=== PATIENT | female | born 1955 | race Caucasian/White ===

== ENCOUNTER 2025-03-16 10:10 | Inpatient (IN) ==
--- NOTE | 2025-03-16 10:40 | Emergency Department Note ---
History of Present Illness General Chief complaint: Fall Stated complaint: FALL, LEG PAIN Time Seen by Provider: 03/16/25 10:17 History of Present Illness Maximum Pain Intensity: 2 This 70-year-old female presents today via ALS ambulance, for evaluation of her left knee. The patient was at home this morning trimming an apple tree. She was on a small stepladder. She fell off, landing on her left knee. There was immediate onset of pain. She was unable to ambulate. EMS was notified. She was given morphine en-route which decreased her discomfort. She denies any prior history of significant left knee injury. No numbness or tingling. She has been unable to move the knee secondary to pain. She denies striking her head. She currently denies any chest pain, shortness of breath, vomiting, or abdominal pain. She is currently nauseated. Her accompanies her today. Home Medications Medication Instructions Recorded Confirmed Type calcium carbonate (Calcium 600) 600 mg PO DAILY 10/29/18 03/16/25 History multivitamin 1 tab PO DAILY 10/29/18 03/16/25 History Allergies Allergy/AdvReac Type Severity Reaction Status Date / Time No Known Allergies Allergy Verified 10/29/18 23:04 Past Med/Surg History Problem List (Updated 03/16/25 @ 17:00 by Schuyler Karimi PA-C) Head trauma Elevated C-reactive protein (CRP) Thrombocytopenia Closed fracture of lateral portion of left tibial plateau (Acute) Medical History No chronic diseases present Surgical History No significant past surgical history Family History Other No pertinent family history Social History (Updated 03/16/25 @ 16:43 by Schuyler Karimi PA-C) Smoking Status: Never smoker Preferred Language: Welsh marital status: Current Living Situation: Spouse Feels Safe at Home: Yes Review of Systems A total of 10 systems reviewed and were otherwise negative Physical Exam Vital Signs Vital Signs - 24 hr 03/16/25 10:18 03/16/25 11:20 03/16/25 11:45 Temperature 36.6 C Temperature Source Oral Pulse Rate 78 Pulse Rate [Finger] 72 Respiratory Rate 15 18 Blood Pressure 135/74 Blood Pressure [Right Arm] 121/72 Blood Pressure Mean 94 Blood Pressure Mean [Right Arm] 88 Pulse Oximetry 93 87 L 95 Oxygen Delivery Method Room Air Room Air Nasal Cannula Nasal Cannula Oxygen Flow Rate 0 2 Sepsis Recent Fever Within 48 Hours No Sepsis New/Unexplained Change in Mental Status N/A Sepsis Action Taken by Nursing No Action Required Oxygen Flow Rate - Titration 2 Pulse Oximetry Post Tiitration 93 03/16/25 14:00 03/16/25 16:05 03/16/25 17:04 Temperature Temperature Source Pulse Rate Pulse Rate [Finger] 69 76 76 Respiratory Rate 16 18 14 Blood Pressure Blood Pressure [Right Arm] 123/74 137/85 129/69 Blood Pressure Mean Blood Pressure Mean [Right Arm] 90 102 89 Pulse Oximetry 98 99 94 Oxygen Delivery Method Room Air Oxygen Flow Rate Sepsis Recent Fever Within 48 Hours Sepsis New/Unexplained Change in Mental Status Sepsis Action Taken by Nursing Oxygen Flow Rate - Titration Pulse Oximetry Post Tiitration General: Well-developed, well-nourished, elderly white female, in no acute distress. Laying on the bed. Obvious discomfort. Alert and oriented. Skin: Warm dry with good turgor. No rashes. No ecchymosis or erythema. She has multiple abrasions present on her upper extremities. She also has a large effusion in the left knee. HEENT: Normocephalic, atraumatic. Eyes PERRLA, EOMI. Nares patent bilaterally without nasal drainage. Oropharynx with moist oral mucosa. Fair dentition. Heart: Heart RRR. No MGR. Peripheral pulses are 2+. Lungs: Lungs are clear to auscultation. No crackles rhonchi or wheezing. Good air movement. The patient is able to take a deep breath. Abdomen: Abdomen was inspected, auscultated, and palpated. Bowel sounds present x 4. Soft, nontender to palpation. No hepato-splenomegaly. No masses noted. No rebound. No pain over McBurney's point. No CVA tenderness. Musculoskeletal: Gross motor function of the upper extremities is intact and unremarkable. She has full motion of the shoulders, elbows, and wrists without discomfort. She has full range of motion of the right hip, knee, and ankle. Left hip motion is limited secondary to her left knee pain. She has flexion of the left knee to approximately 45 degrees. She lacks approximately 10 degrees of terminal extension also secondary to pain. There is discomfort with palpation over the lateral tibia and lateral femoral condyle. No discomfort with palpation over her gastroc, tibialis anterior, ankle, or foot. Ankle function is intact and unremarkable. Stressing of the MCL and LCL causes lateral pain at her knee. There is no palpable defect in the patellar tendon or quadriceps tendon secondary to pain. She is able to perform a bent knee leg raise. Neurologic: Gross sensation is intact across the right and left legs by soft touch. Course Administered Medications Lactated Ringer's (Lr) 1,000 mls @ 110 mls/hr IV .[id number] [facility] Stop: 03/19/25 15:44 Last Admin: 03/16/25 16:01 Dose: 110 mls/hr Documented By: SARIKA Ondansetron HCl (Ondansetron Inj 2 Mg/Ml 2 Ml Vial) 4 mg IV Q4H PRN PRN Reason: Nausea Stop: 04/15/25 15:15 Last Admin: 03/16/25 17:04 Dose: 4 mg Documented By: JAMEL Discontinued Medications Ondansetron HCl (Ondansetron Inj 2 Mg/Ml 2 Ml Vial) 4 mg IV NOW STA Stop: 03/16/25 12:58 Last Admin: 03/16/25 13:12 Dose: 4 mg Documented By: ROSIO Medical Decision Making Differential Diagnosis Knee contusion, ligament tear, meniscal tear, tibial plateau fracture, femoral condylar fracture, osteoarthritis exacerbation, DVT Medical Records Attestation: I reviewed the patient's medical records. Home Medications Current Medication List: was personally reviewed by me Laboratory Data CBC obtained today shows a normal white count and normal H&H. Chemistry panel obtained today shows normal electrolytes. Normal BUN of 15 and creatinine mildly low at 0.58. Glucose 137. LFTs are unremarkable. 03/16/25 13:52 03/16/25 13:52 Lab Results 03/16/25 Range/Units 13:52 WBC 8.27 (4.8-10.8) K/ul RBC 4.39 (4.20-5.40) M/uL Hgb 12.9 (12.0-16.0) g/dl Hct 39.2 (37.0-47.0) % MCV 89.3 (80.0-100.0) fL MCH 29.4 (25.0-34.0) pg MCHC 32.9 (32.0-36.0) g/dL RDW Std Deviation 46.0 (36.4-46.3) fL RDW Coeff of Beka 13.9 (11.5-14.5) % Plt Count 115 L (130-400) K/uL MPV 11.8 (9.4-12.4) fL Immature Gran % (Auto) 0.4 % Neut % (Auto) 87.2 % Lymph % (Auto) 7.1 % [place] % (Auto) 5.0 % Eos % (Auto) 0.1 % Baso % (Auto) 0.2 % Neut # (Auto) 7.21 H (1.40-6.50) K/uL Lymph # (Auto) 0.59 L (1.20-3.40) K/uL [place] # (Auto) 0.41 (0.11-0.59) K/uL Eos # (Auto) 0.01 (0.00-0.50) K/uL Baso # (Auto) 0.02 (0.00-0.20) K/uL Immature Gran # (Auto) 0.03 (0.01-0.20) K/uL Sodium 140 (136-145) mmol/L Potassium 4.0 (3.5-5.1) mmol/L Chloride 104 (98-107) mmol/L Carbon Dioxide 30 (21-32) mmol/L Anion Gap 6 (3-11) BUN 15 (6-23) mg/dl Creatinine 0.58 L (0.6-1.2) mg/dl Est Cr Clr Drug Dosing 84.5 ml/min eGFR 97.29 BUN/Creatinine Ratio 25.9 H (10-20) Glucose 137 H (70-99(Fasting)) mg/dl Calcium 9.2 (8.6-10.3) mg/dl Total Bilirubin 0.4 (0.2-1.0) mg/dl Direct Bilirubin 0.1 (0-0.2) mg/dl AST 23 (13-39) U/L ALT 15 (7-52) U/L Alkaline Phosphatase 73 (34-104) U/L Total Protein 6.7 (6.0-8.3) gm/dl Albumin 3.9 (3.4-5.0) gm/dl Globulin 2.8 (2.5-4.0) gm/dl Albumin/Globulin Ratio 1.4 (0.9-2) Imaging Data My Impression: radiographic imaging obtained today of the left knee was interpreted by me and read by radiology. She has a visibly depressed Lateral tibial plateau fracture with comminution. CT scan and imaging of the left knee was performed in anticipation of surgical planning. This showed better resolution of the depressed tibial plateau fracture and the comminution. CT scan imaging of the head and cervical spine was also obtained. These were also interpreted by me and read by radiology. she has no acute intracranial findings. No midline shift. CT scan imaging of the cervical spine shows no acute traumatic findings. The patient does have an intraspinal calcification at the C2-C3 level suggestive of a calcified meningioma. MRI follow-up imaging was recommended. There is also focal disc narrowing at C5-C6. Radiologist's Impression: Knee X-Ray 03/16/25 10:40 XR knee LT 3V CLINICAL HISTORY: Fall. COMPARISON: None FINDINGS: There is an acute comminuted moderately depressed lateral tibial plateau fracture. Fracture extends to the tibial spines and proximal metadiaphysis of the left tibia. There is an associated large left knee joint effusion with lipohemarthrosis. There is no proximal left fibular fracture. No patellar or distal left femoral fracture is identified. There are mild degenerative changes within the left knee. IMPRESSION: 1. Acute comminuted moderately depressed lateral tibial plateau fracture. 2. Associated large left knee joint effusion with lipohemarthrosis. ACT 112: Negative or not required by law. Electronically signed by: Darvin Fischer M.D. 03/16/2025 11:[address] 03/16/25 11:48 CT knee LT wo con CLINICAL HISTORY: OR planning COMPARISON STUDY: Left knee radiographs performed earlier today. TECHNIQUE: Axial images of the left knee were obtained without IV contrast. Sagittal and coronal reformats were viewed. A dose lowering technique was utilized adhering to the principles of ALARA. FINDINGS: There is an acute comminuted lateral tibial plateau fracture which is significantly depressed. There is depression of approximately 7 mm. The fracture involves the entirety of the lateral tibial plateau and extends to the tibial spines. No extension into the medial tibial plateau is present. There is a large associated left knee joint effusion with lipohemarthrosis. No distal left femoral or proximal left fibular fractures present. There is no patellar fracture. There are mild degenerative changes within the left knee. IMPRESSION: 1. Acute comminuted lateral tibial plateau with significant depression of 7 mm. 2. Associated large left knee joint effusion with lipohemarthrosis. ACT 112: Negative or not required by law. Electronically signed by: Darvin Fischer M.D. 03/16/2025 12:[address] 03/16/25 14:22 Clinical History: Injury. Technique: Axial computed tomography images were obtained of the brain from the vertex to the skull base without intravenous contrast. Findings: There is no sign of intracranial hemorrhage. There is normal garcia-white matter differentiation with no sign of acute or old infarction. No midline shift or other form of herniation is identified. There is no hydrocephalus. No obvious mass lesion is seen on this noncontrast examination. The visualized portions of the orbits and paranasal sinuses appear unremarkable. The mastoid air cells appear clear Impression: Unremarkable noncontrast CT of the brain Electronically signed by Sea Todd 03-16-2025 3:[address] 03/16/25 14:23 EXAM: CT cervical spine without contrast PROVIDED HISTORY: Patient fell from step ladder. Nausea and vomiting.. COMPARISON: None TECHNIQUE: Helical CT imaging of the cervical spine was acquired without the use of IV contrast. Images are presented in axial, sagittal, and coronal reformats. FINDINGS: Alignment is anatomic. No significant listhesis. Vertebral body heights are maintained without compression deformity. No evidence of acute vertebral fracture identified. There is abnormal narrowing of the C5-6 intervertebral disks with endplate sclerosis and spurring. Mild degenerative facet arthropathy of the mid and lower cervical facet joints are present. There is some reversal of cervical lordosis. There is an intraspinal calcific lesion measuring approximately 1.2 x 0.6 x 0.6 cm in the right aspect of the spinal canal at the C2-3 level. This appears most likely extramedullary and may relate to the meninges such as a calcified meningioma or other lesion. Further evaluation with MRI study and neurologic/neurosurgical follow-up is indicated for this patient. IMPRESSION: 1. Negative for acute bony trauma. 2. Mild degenerative spondylolysis with focal disc narrowing at C5-6. 3. Calcified intraspinal mass at C2-3 to the right of the midline which may relate to the meninges such as calcified meningioma or other lesion. Further evaluation with MRI study of the cervical spine and neurologic/neurosurgical follow-up is recommended for this patient. 4. The was informed verbally of these findings at 17Hrs. Electronically signed by Feliz Montenegro 03-16-2025 5:15 PM ECG Data Additional Comments: EKG obtained this morning shows a normal sinus rhythm with a rate of 66. No acute ST or T wave changes are noted. This was reviewed with Dr. Estrada. Prescription Drug Monitoring [place] Drug Monitoring Program reviewed and no issues identified Blood Pressure Blood Pressure Findings: Normal blood pressure MDM Narrative The patient was evaluated in room B10. Conservative care measures were discussed. IV was established. Labs were obtained. Radiographic imaging obtained of the knee suggested a tibial plateau fracture with depression. Additional imaging using CT of the knee was obtained in anticipation of surgical planning. The patient began vomiting while in the department. She was given Zofran 4 mg IV which temporarily improved her symptoms, and then she began vomiting again. She was mildly diaphoretic as well. The patient was offered further Zofran but she declined. She was sent for CT scan imaging of her head and neck which was unremarkable for acute changes. She refused additional pain medication. Consultation was obtained from orthopedics. Dr. Agee recommended fixation of the tibia tomorrow, given that the patient ate at approximately 7:30 AM. The hospitalist team (Dr. Gaming) was consulted for medical admission with surgical consultation. The patient is aware and is agreeable. Please see that dictation for final management. She remained stable while in the ED. Impression & Plan Closed fracture of lateral portion of left tibial plateau hospitalist service was consulted for admission. Orthopedic service was consulted and recommended surgical intervention tomorrow given her Lack of n.p.o. status. follow-up MRI of the cervical spine will be ordered by the hospitalist team. Discharge Plan Visit Data Chief Complaint: Fall Stated Complaint: FALL, LEG PAIN ED Provider: Bruce Estrada ED Midlevel Provider: Schuyler Karimi Discharge Problem: Closed fracture of lateral portion of left tibial plateau Patient Disposition: Admitted As Inpatient Condition: Fair Forms Stand Alone Forms: Powered Prescriptions Prescriptions: No Action multivitamin Tablet 1 tab PO DAILY calcium carbonate [Calcium 600] 600 mg calcium (1,500 mg) Tablet 600 mg PO DAILY Referrals Referrals: Joshua Garcia [Primary Care Provider] - ED DC CONDITION Conditon at Discharge Condition at Discharge: Fair Discharge Problem: Closed fracture of lateral portion of left tibial plateau Qualifiers: Encounter type: initial encounter Qualified Code(s): S82.122A - Displaced fracture of lateral condyle of left tibia, initial encounter for closed fracture
--- NOTE | 2025-03-16 11:27 | XRay Report ---
XR knee LT 3V CLINICAL HISTORY: Fall. COMPARISON: None FINDINGS: There is an acute comminuted moderately depressed lateral tibial plateau fracture. Fractur e extends to the tibial spines and proximal metadiaphysis of the left tibia. There is an associated l arge left knee joint effusion with lipohemarthrosis. There is no proximal left fibular fracture. No p atellar or distal left femoral fracture is identified. There are mild degenerative changes within the left knee. IMPRESSION: 1. Acute comminuted moderately depressed lateral tibial plateau fracture. 2. Associated large left knee joint effusion with lipohemarthrosis. ACT 112: Negative or not required by law. Electronically signed by: Darvin Fischer M.D. 03/16/2025 11:26 AM
--- NOTE | 2025-03-16 12:52 | CT Scan Report ---
CT knee LT wo con CLINICAL HISTORY: OR planning COMPARISON STUDY: Left knee radiographs performed earlier today. TECHNIQUE: Axial images of the left knee were obtained without IV contrast. Sagittal and coronal refo rmats were viewed. A dose lowering technique was utilized adhering to the principles of ALARA. FINDINGS: There is an acute comminuted lateral tibial plateau fracture which is significantly depress ed. There is depression of approximately 7 mm. The fracture involves the entirety of the lateral tibi al plateau and extends to the tibial spines. No extension into the medial tibial plateau is present. There is a large associated left knee joint effusion with lipohemarthrosis. No distal left femoral or proximal left fibular fractures present. There is no patellar fracture. There are mild degenerative changes within the left knee. IMPRESSION: 1. Acute comminuted lateral tibial plateau with significant depression of 7 mm. 2. Associated large left knee joint effusion with lipohemarthrosis. ACT 112: Negative or not required by law. Electronically signed by: Darvin Fischer M.D. 03/16/2025 12:50 PM
[2025-03-16] MEDS: ONDANSETRON INJ 2 MG/ML 2 ML VIAL IV STA (13:12)
--- NOTE | 2025-03-16 13:24 | History & Physical Report ---
Date of Service March 16, 2025 Assessment & Plan (1) Closed fracture of lateral portion of left tibial plateau: Plan: I reviewed the imaging findings with the patient and her . Surgery is indicated to reduce and stabilize the fracture to give her the best possible long-term outcome for her knee. I had a long discussion with her about the risks and benefits of surgery, alternatives to surgery, and expected outcomes. After reviewing all these she elected to proceed with surgery. All questions were answered. Informed consent was signed. Surgical site was marked. Patient will be admitted to the internal medicine service. She will be kept nonweightbearing on the left lower extremity before surgery. After surgery we will plan on 6-8 weeks of nonweightbearing. She needs to be n.p.o. after midnight tonight for surgery tomorrow. (2) Thrombocytopenia: (3) Head trauma: Plan Marcy is a 69yo F with no significant medical history, here for fall 03/16/25 AM when trimming her apple tree on a 3-step ladder, resulting in L knee trauma found to be a L tibial plateau fracture confirmed by L knee xr and CT scan. Being admitted for ORIF and L arthroscopy with Dr. Agee tomorrow morning 02/16/25. Requires admission for upcoming ortho procedure, thereafter to be non weight-bearing on LLE for 6-8wks, PT/OT to start while inpatient. #Lateral Tibial Plateau fracture, Left closed, however with 7mm depression, prompting ORIF Scheduled for tomorrow 03/17/[address] Agee, appreciate recs Pain control: given morphine in EMS, pain controlled well but having nausea - Morphine 2mg vs 4mg for moderate vs severe pain, respectively - Option of toradol 15mg vs 30mg for same in lieu of morphine to avoid nausea/vomiting - Zofran prn for associated nausea/vomiting Vital signs stable, though BMP indicating mild dehydration based on BUN:Cr - ordered LR mIFV while PO is minimal Diet: ordered regular diet for now however no appetite due to nausea from morphine - NPO from midnight in anticipation of AM procedure PT/OT ordered to start tomorrow 03/17 after procedure - NON-weightbearing on LLE 6-8wks #Head trauma recalls hitting back of head on grass during fall, though not very hard - no significant pain, no loss of consciousness, dizziness, blurry vision, or focal deficits CT head w/o con and CT neck ordered, both appear unremarkable for acute intracranial or neck/c-spine pathology Pending radiologist read #Thrombocytopenia isolated aside from mildly nphilic predominance - mildly decreased at 115, down from prior in 2019 at 134 - asymptomatic, Hgb WNL, no signs of active bleeding - trend with CBC in AM Code: full FEN/GI: reg; NPO from midnight (00:00 on 03/17/25) VTE ppx: just SCD on RLE, surgery in AM 03/17/25 Dispo: med/surg History of Present Illness Primary Care Provider: Santypratimacharlie Vidal is a 69yo F with no significant medical history, here for fall this morning when trimming her apple tree resulting in L knee trauma found to be a L tibial plateau fracture seen on knee xr and CT scan. Being admitted for ORIF and L arthroscopy with Dr. Agee tomorrow morning 02/16/25. HPI: Denies any recent illness, weakness, falls, dizziness, alcohol or other substance use, or decreased appetite. Endorses she was doing yardwork all morning in her backyard. Notes she was on a 3-step ladder reaching to cut a long branch from her apple tree, when she lost balance and ended up falling, getting her L leg stuck in the ladder, and hitting her L knee on the ground. Notes the ground was grassy and not very hard, but immediately had severe pain in L knee. She denies recalling exactly the direction she fell, but does recall hitting the back of her head on the ground, denies any headache, dizziness, blurry vision, or loss of consciousness. States her was in the house when she fell, so despite her yelling, he did not come out right away. She was eventually able to get the attention of a neighbor, who then got the attention of pt's . They called 911 to be taken to the hospital. She was given morphine in EMS, unsure of dosage. ER course: given Zofran 4mg for nausea Living situation: lives with , son, and 2 grandkids. Doesn't use a walker or cane, no supplemental O2. No home health services. Allergies Allergy/AdvReac Type Severity Reaction Status Date / Time No Known Allergies Allergy Verified 10/29/18 23:04 Home Medications Medication Instructions Recorded Confirmed Type calcium carbonate (Calcium 600) 600 mg PO DAILY 10/29/18 03/16/25 History multivitamin 1 tab PO DAILY 10/29/18 03/16/25 History Past Med/Surg History Problem List (Updated 03/16/25 @ 17:00 by Schuyler Karimi PA-C) Head trauma Elevated C-reactive protein (CRP) Thrombocytopenia Closed fracture of lateral portion of left tibial plateau (Acute) Medical History No chronic diseases present Surgical History No significant past surgical history Family History Other No pertinent family history Social History (Updated 03/16/25 @ 16:43 by Schuyler Karimi PA-C) Smoking Status: Never smoker Preferred Language: Gabonese marital status: Current Living Situation: Spouse Feels Safe at Home: Yes Physical Exam Physical Exam: Gen: A&Ox3, no acute distress, appearing slightly tired HEENT: NC/AT, EOM intact, anicteric sclerae; slightly dry mucus membranes CV: RRR, +s1/s2, no m/r/g Resp: clear to auscultation b/l, no respiratory distress, good equal air entry b/l, no w/r/R GI/Abd: +BS, abdomen soft, non-distended, nontender to palpation MSK: LLE- L knee with moderate soft tissue swelling, no significant erythema or gross deformity but tenderness to palpation of inferolateral aspect of L knee joint, did not attempt ROM or strength testing due to pain; RLE unremarkable; b/l UE unremarkable Neuro: no facial droop, speech intact Psych: mood-affect congruence, good eye contact Results & Data Results & Data Vital Signs (Past 12 Hours) Vital Signs Temp Pulse Pulse Resp BP BP Pulse Ox 03/16/25 11:45 72 18 121/72 95 03/16/25 11:20 87 L 03/16/25 10:18 36.6 C 78 15 135/74 93 O2 Del Method O2 Flow Rate 03/16/25 11:45 Nasal Cannula 2 03/16/25 11:20 Room Air, Nasal Cannula 0 03/16/25 10:18 Room Air Supervising Physician Co-Signing Physician Notes I personally examined the patient and verified all jacobson points of history and exam, discussed case, and agree with decision making with Dr Schuler mechanical fall when trimming a tree, almost immediate knee pain. Vitals noted, in general she is laying in bed appears to be in no distress. HEENT normocephalic atraumatic mucous membranes moist. Breathing unlabored no accessory muscle use good effort. Labs and diagnostics noted. Case discussed with orthopedics, input appreciated. Tibial plateau fracturefor surgery tomorrow. Pain control, supportive care. Intractable vomitinghead CT negative for any bleeding or mass effect, troponin negative, suspect was either due to pain or side effect of pain m edication. Follow, supportive care. Incidentally noted calcified mass on C-spinewe will want MRI as recommended by radiology, but this appears nonemergent, MRI either later in hospital stay (right now would be quite uncomfortable due to fx) or in short-order as outpt Resident Activity Tracking Resident Involvement: Resident Care Provided Care Provided: Adult Hospital Medicine (3) Head trauma Encounter type: initial encounter Qualified Code(s): S09.90XA - Unspecified injury of head, initial encounter
[2025-03-16 14:12] LABS: Hematocrit (blood only) 39.2 % (37.0-47.0); Hemoglobin 12.9 g/dl (12.0-16.0); Immature Granulocytes # (auto) 0.03 K/uL (0.01-0.20); Immature Granulocytes % (auto) 0.4 %; Mean Corpuscular Hemoglobin 29.4 pg (25.0-34.0); Mean Corpuscular Volume 89.3 fL (80.0-100.0); Platelet Count 115 K/uL (130-400); RDW Standard Deviation 46.0 fL (36.4-46.3); Red Blood Count 4.39 M/uL (4.20-5.40); White Blood Count 8.27 K/ul (4.8-10.8)
[2025-03-16] MEDS ORDERED: KETOROLAC TROMETHAMINE 15 MG/ML VIAL IV PRN ×2 (14:22→15:14)
[2025-03-16] MEDS ORDERED: MoRPHine SULFATE 4 MG/ML 1 ML CARP\\VIAL IV PRN (14:24)
[2025-03-16] MEDS ORDERED: MoRPHine SULFATE 2 MG/ML CARP IV PRN (14:24)
[2025-03-16 14:29] LABS: Alanine Aminotransferase 15.0 U/L (7-52); Albumin Globulin Ratio 1.4 (0.9-2); Alkaline Phosphatase 73.0 U/L (34-104); Anion Gap 6.0 (3-11); Bilirubin,Total 0.4 mg/dl (0.2-1.0); Blood Urea Nitrogen 15.0 mg/dl (6-23); Calcium 9.2 mg/dl (8.6-10.3); Carbon Dioxide 30.0 mmol/L (21-32); Chloride 104.0 mmol/L (98-107); Creatinine Clr Calc Pharmacy 84.5 ml/min; Globulin 2.8 gm/dl (2.5-4.0); Glucose 137.0 mg/dl (70-99(Fasting)); Potassium 4.0 mmol/L (3.5-5.1); Sodium 140.0 mmol/L (136-145); Total Protein 6.7 gm/dl (6.0-8.3)
--- NOTE | 2025-03-16 14:49 | Orthopedic Consultation ---
Date of Consultation March 16, 2025 Assessment & Plan (1) Closed fracture of lateral portion of left tibial plateau: I reviewed the imaging findings with the patient and her . Surgery is indicated to reduce and stabilize the fracture to give her the best possible long-term outcome for her knee. I had a long discussion with her about the risks and benefits of surgery, alternatives to surgery, and expected outcomes. After reviewing all these she elected to proceed with surgery. All questions w ere answered. Informed consent was signed. Surgical site was marked. Patient will be admitted to the internal medicine service. She will be kept nonweightbearing on the left lower extremity before surgery. After surgery we will plan on 6-8 weeks of nonweightbearing. She needs to be n.p.o. after midnight tonight for surgery tomorrow. History of Present Illness Reason for Consultation: Left tibial plateau fracture History of Present Illness 69-year-old female, was working at home on a ladder this morning trimming a tree when she fell off the ladder from a height of about 2 to 3 feet landing on her left leg. She had immediate onset of severe pain in the left knee. Difficulty ambulating. She was brought to the emergency room where x-rays were obtained demonstrating a lateral tibial plateau fracture, Schatzker type II. CT scan was obtained. Orthopedics was consulted for evaluation and management. Patient was seen and examined the emergency room. She denies any previous problems with her knees. 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 Denies numbness or tingling down her leg. Denies tobacco, alcohol and illicits. Allergies Allergy/AdvReac Type Severity Reaction Status Date / Time No Known Allergies Allergy Verified 10/29/18 23:04 Home Medications Medication Instructions Recorded Confirmed Type calcium carbonate (Calcium 600) 600 mg PO DAILY 10/29/18 03/16/25 History multivitamin 1 tab PO DAILY 10/29/18 03/16/25 History Patient History Medical History No chronic diseases present Surgical History No significant past surgical history Family History (Updated 03/16/25 @ 10:39 by Schuyler Karimi PA-C) Other No pertinent family history Social History Smoking Status: Never smoker Preferred Language: Togolese Feels Safe at Home: Yes Physical Exam Physical Exam: On exam she is very pleasant female in no acute distress accompanied by her , alert and oriented x 3. Left lower extremity exam reveals the patient have a 3+ effusion. The skin is intact completely. She has a palpable pulse dorsalis pedis in her foot. She is sensory intact to light touch in the dorsal and plantar aspects of the foot. She wiggles her toes and fires tib ant and gastrocsoleus without difficulty. Knee range of motion was not tested secondary to pain. She had some mild swelling noted over the lateral tibial plateau where she was tender to palpation. No tenderness over the medial tibial plateau or over the distal femur. Mild tenderness over the synovium secondary to hemarthrosis. Results & Data Vital Signs (Past 12 Hours) Vital Signs Temp Pulse Pulse Resp BP BP Pulse Ox 03/16/25 14:00 69 16 123/74 98 03/16/25 11:45 72 18 121/72 95 03/16/25 11:20 87 L 03/16/25 10:18 36.6 C 78 15 135/74 93 O2 Del Method O2 Flow Rate 03/16/25 14:00 Room Air 03/16/25 11:45 Nasal Cannula 2 03/16/25 11:20 Room Air, Nasal Cannula 0 03/16/25 10:18 Room Air Diagnostic Findings I independently interpreted her x-rays and CT scan of the left knee. This shows the lateral tibial plateau fractured and depressed about 9 mm. There is a fracture line extending through the lateral cortex, consistent with a Schatzker type 2. Bone density suspicious for osteoporosis.
--- NOTE | 2025-03-16 15:50 | CT Scan Report ---
Clinical History: Injury. Technique: Axial computed tomography images were obtained of the brain from the vertex to the skull base without intravenous contrast. Findings: There is no sign of intracranial hemorrhage. There is normal garcia-white matter differentiation with no sign of acute or old infarction. No midline shift or other form of herniation is identified. There is no hydrocephalus. No obvious mass lesion is seen on this noncontrast examination. The visualized portions of the orbits and paranasal sinuses appear unremarkable. The mastoid air cells appear clear Impression: Unremarkable noncontrast CT of the brain Electronically signed by Sea Todd 03-16-2025 3:49 PM
[2025-03-16] MEDS: LACTATED RINGER'S 1,000 ML IV SCH (16:01)
[2025-03-16] MEDS: ONDANSETRON INJ 2 MG/ML 2 ML VIAL IV PRN (17:04)
--- NOTE | 2025-03-16 17:16 | CT Scan Report ---
EXAM: CT cervical spine without contrast PROVIDED HISTORY: Patient fell from step ladder. Nausea and vomiting.. COMPARISON: None TECHNIQUE: Helical CT imaging of the cervical spine was acquired without the use of IV contrast. Images are presented in axial, sagittal, and coronal reformats. FINDINGS: Alignment is anatomic. No significant listhesis. Vertebral body heights are maintained without compression deformity. No evidence of acute vertebral fracture identified. There is abnormal narrowing of the C5-6 intervertebral disks with endplate sclerosis and spurring. Mild degenerative facet arthropathy of the mid and lower cervical facet joints are present. There is some reversal of cervical lordosis. There is an intraspinal calcific lesion measuring approximately 1.2 x 0.6 x 0.6 cm in the right aspect of the spinal canal at the C2-3 level. This appears most likely extramedullary and may relate to the meninges such as a calcified meningioma or other lesion. Further evaluation with MRI study and neurologic/neurosurgical follow-up is indicated for this patient. IMPRESSION: 1. Negative for acute bony trauma. 2. Mild degenerative spondylolysis with focal disc narrowing at C5-6. 3. Calcified intraspinal mass at C2-3 to the right of the midline which may relate to the meninges such as calcified meningioma or other lesion. Further evaluation with MRI study of the cervical spine and neurologic/neurosurgical follow-up is recommended for this patient. 4. The was informed verbally of these findings at 17Hrs. Electronically signed by Feliz Montenegro 03-16-2025 5:15 PM
[2025-03-16] MEDS ORDERED: MELATONIN 3 MG TAB PO PRN (18:30)
[2025-03-16] MEDS ORDERED: ONDANSETRON INJ 2 MG/ML 2 ML VIAL IV PRN (18:30)
--- NOTE | 2025-03-16 18:36 | Billing Data ---
Date of Service March 16, 2025 Coding Level of Care Code 33737 INT INP/OBS CARE
[2025-03-17] MEDS: ACETAMINOPHEN 325 MG TAB PO PRN (01:03)
--- NOTE | 2025-03-17 07:09 | Hospitalist Progress Note ---
Date of Service March 17, 2025 Assessment & Plan (1) Closed fracture of lateral portion of left tibial plateau: (2) Osteoporosis: (3) Thrombocytopenia: (4) Head trauma: (5) Cervical spinal mass: Plan Marcy is a 69yo F with no significant medical history, here for fall 03/16/25 AM when trimming her apple tree on a 3-step ladder, resulting in L knee trauma found to be a L tibial plateau fracture confirmed by L knee xr and CT scan. Underwent ORIF and L arthroscopy with Dr. Agee 02/16/25 AM. Requires continued admission for VS and symptom monitoring s/p ortho procedure, thereafter to be non weight-bearing on LLE for 6-8wks, PT/OT to start while inpatient. #Lateral Tibial Plateau fracture, Left closed, however with 7mm depression, prompting ORIF 03/17/[address] Agee Procedure uncomplicated, LLE with brace and ice packs, supportive pillows PT/OT ordered, appreciate recs, 6-8wks of non-weightbearing LLE Pain control: - Morphine 2mg vs 4mg for moderate vs severe pain, respectively - Oxycodone 5-10mg prn for pain or prior to PT - Zofran prn for associated nausea/vomiting Vital signs stable, though BMP indicating mild dehydration based on BUN:Cr - continue mIVF, may discontinue based on good PO intake - BMP AM #Osteoporosis Noted on DEXA from 2022 with lowest z-score of -2.9, within osteoporotic range Treat with bisphosphonates once permitted to start weightbearing, 6-8wks from now (mid-April to early May) #Head trauma recalls hitting back of head on grass during fall, though not very hard - no significant pain, no loss of consciousness, dizziness, blurry vision, or focal deficits - CT head w/o contrast unremarkable for acute intracranial pathology #Cervical spinal mass, incidental CT head w/o con and CT neck showing C2-3 intraspinal mass R of midline, possible meningioma MRI c-spine w/ and w/o contrast ordered to better characterize mass #Thrombocytopenia isolated aside from mildly nphilic predominance - mildly decreased at 108, down from prior in 2019 at 134 - asymptomatic, Hgb 11.9, no signs of active bleeding H&H timed for 17:00 pending CBC AM Code: full FEN/GI: regular as tolerated VTE ppx: aspirin 81mg BID (per ortho) starting 7/7 AM Dispo: med/surg Admission and Anticipated Discharge Date Admission Date: March 16, 2025 Supervising Physician Co-Signing Physician Notes I personally examined the patient and verified all jacobson points of history and exam, discussed case, and agree with decision making with Dr Schuler seen postop. Doing well overall. Just wonders about leg positioningbut right now is iced and in an immobilizer. Discussed MRI C-spine and rationale. Vitals noted, in general she is laying in bed appears to be in no distress. HEENT normocephalic atraumatic mucous membranes moist. Breathing unlabored no accessory muscle use good effort. left leg in immobilizer, wrap, and ice pack. Labs and diagnostics noted. Case discussed with orthopedics, input appreciated. Tibial plateau fracture Postop and overall doing well. Pain control, PT/OT eval and treat. Intractable vomitinghead CT negative for any bleeding or mass effect, troponin negative, suspect was either due to pain or side effect of pain medicat ion. appears to have resolved Incidentally noted calcified mass on C-spinewe will want MRI as recommended by radiology, ordered, pending hopefully home tomorrow after PT outpatient osteoporosis management (although adding calcium, vitamin D now) Subjective Back from L ORIF procedure, feeling well but a bit tired, having no significant pain. Endorses the procedure went well, no concerns about bleeding or other complications. Lunch was in front of her but she had just been taking a nap, so hadn't gotten to eat yet but is willing. Denies significant pain, numbness/tingling, lightheadedness, or dizziness. Physical Exam Physical Exam: Gen: A&Ox3, no acute distress, appearing slightly tired HEENT: NC/AT, EOM intact, anicteric sclerae; slightly dry mucus membranes CV: RRR, +s1/s2, no m/r/g Resp: clear to auscultation b/l, no respiratory distress, good equal air entry b/l, no w/r/R GI/Abd: +BS, abdomen soft, non-distended, nontender to palpation MSK: LLE- in brace with ice packs on top, no obvious swelling or ecchymosis of visible skin, strength and ROM testing of LLE not done but able to move LLE and wiggle LE toes on command; RLE unremarkable; b/l UE unremarkable Neuro: no facial droop, speech intact, able to move all extremities on command Psych: mood-affect congruence, good eye contact Results & Data Results & Data Vital Signs (Past 12 Hours) Vital Signs Temp Pulse Resp BP Pulse Ox O2 Del Method 03/17/25 07:05 36.8 C 77 16 111/67 94 Room Air 03/16/25 22:50 36.6 C 80 18 111/63 03/16/25 20:00 36.6 C 80 18 111/63 95 Room Air Resident Activity Tracking Resident Involvement: Resident Care Provided Care Provided: Adult Hospital Medicine (1) Closed fracture of lateral portion of left tibial plateau Encounter type: initial encounter Qualified Code(s): S82.122A - Displaced fracture of lateral condyle of left tibia, initial encounter for closed fracture (2) Osteoporosis Encounter type: initial encounter Osteoporosis type: unspecified Presence of current pathological fracture: with current pathological fracture Qualified Code(s): M80.00XA - Age-related osteoporosis with current pathological fracture, unspecified site, initial encounter for fracture (4) Head trauma Encounter type: initial encounter Qualified Code(s): S09.90XA - Unspecified injury of head, initial encounter
[2025-03-17] MEDS ORDERED: MIDAZOLAM HCL 1 MG/ML 2ML VIAL ONE (07:14)
[2025-03-17] MEDS ORDERED: PROPOFOL IV EMULSION 10 MG/ML 20 ML VIAL IV ONE (07:14)
[2025-03-17] MEDS ORDERED: LIDOCAINE 2% 2 ML VIAL/AMP(20MG/ML) INFIL ONE (07:14)
[2025-03-17] MEDS ORDERED: ROCURONIUM BROMIDE 10 MG/ML 5 ML VIAL IV ONE (07:14)
[2025-03-17] MEDS ORDERED: DEXAMETHASONE SOD INJ 4 MG/ML VIAL ONE (07:14)
[2025-03-17] MEDS ORDERED: ONDANSETRON INJ 2 MG/ML 2 ML VIAL ONE (07:14)
[2025-03-17 07:30] LABS: Hematocrit (blood only) 35.3 % (37.0-47.0); Hemoglobin 11.9 g/dl (12.0-16.0); Mean Corpuscular Hemoglobin 29.9 pg (25.0-34.0); Mean Corpuscular Volume 88.7 fL (80.0-100.0); Platelet Count 108 K/uL (130-400); RDW Standard Deviation 45.0 fL (36.4-46.3); Red Blood Count 3.98 M/uL (4.20-5.40); White Blood Count 5.47 K/ul (4.8-10.8)
[2025-03-17] MEDS ORDERED: ceFAZolin 330 MG/ML 1 GM VIAL ONE (07:31)
[2025-03-17] MEDS ORDERED: SODIUM CHLORIDE 0.9% PF INJ 10 ML VIAL ONE ×2 (07:32)
[2025-03-17] MEDS ORDERED: HYDROmorphone INJ 1 MG/ML SYRINGE IV PRN (07:35)
[2025-03-17] MEDS ORDERED: ONDANSETRON INJ 2 MG/ML 2 ML VIAL IV PRN (07:35)
[2025-03-17] MEDS ORDERED: ATROPINE SULFATE 0.1 MG/ML 10ML SYR IV PRN (07:35)
--- NOTE | 2025-03-17 07:35 | Anesthesiology Consultation ---
Date of Service March 17, 2025 Assessment & Plan ASA ASA2 Proposed Anesthesia Anesthesia Type: General Risk / Benefits Reviewed With: PT / POA / Parent / Guardian, Accepts Plan and Informed Consent Obtained History Surgery Operation Date: 03/17/25 07:15 Proposed Procedures p ORIF Tibial Plateau Fracture(Left) - Fernando Agee MD s Arthroscopy Knee(Left) - Fernando Agee MD Height/Weight Height: 5 ft 6 in Weight: 70.5 kg Allergies Allergy/AdvReac Type Severity Reaction Status Date / Time No Known Allergies Allergy Verified 10/29/18 23:04 Medications Home Medications Medication Instructions Recorded Confirmed Last Taken calcium carbonate (Calcium 600) 600 mg PO DAILY 10/29/18 03/16/25 10/29/18 multivitamin 1 tab PO DAILY 10/29/18 03/16/25 10/29/18 Active Medications Generic Name Dose Route Start Last Admin Trade Name Freq PRN Reason Stop Dose Admin Acetaminophen 650 mg 03/16/25 18:30 03/17/25 01:03 Acetaminophen 325 Mg Tab PO 04/15/25 18:29 650 mg Q4H PRN Administration pain/fever Lactated Ringer's 1,000 mls @ 110 mls/hr 03/16/25 15:45 03/17/25 02:27 Lr IV 03/19/25 15:44 110 mls/hr .Q9H6M ALICJA Administration Ondansetron HCl 4 mg 03/16/25 15:16 03/16/25 17:04 Ondansetron Inj 2 Mg/Ml 2 Ml Vial IV 04/15/25 15:15 4 mg Q4H PRN Administration Nausea Past Medical History Medical History No chronic diseases present Exercise / Class Metabolic Activity II 4-5 Yardwork/Stairs/Walk up hill Past Family History Family History Other No pertinent family history Past Surgical History Surgical History No significant past surgical history Past Anesthesia History No Hx of Anesthesia Complications and No Family Hx of Anesthesia Complications History of PONV No Hx of PONV and No Hx of Motion Sickness Social History Smoking Status: Never smoker Do You Dip or Chew Tobacco: No Hx Alcohol Use: No Hx Substance Use: No Review of Systems denies fever/cough/ colds/ chest pain/ SOB/ MCKAYLA denies MCKAYLA Physical Exam Vital Signs Last Vital Signs Temp 36.8 C 03/17/25 07:05 Pulse 77 03/17/25 07:05 Resp 16 03/17/25 07:05 BP 111/67 03/17/25 07:05 Pulse Ox 94 03/17/25 07:05 O2 Del Method Room Air 03/17/25 07:05 O2 Flow Rate 2 03/16/25 11:45 ENMT Mouth: no TMJ abnormality and no dentition abnormality Thyromental Distance: > or= 3.5 Finger Breadths Mallampati Class: II Neck neck extension not limited Respiratory normal respiratory effort; no respiratory distress Auscultation: lungs clear to auscultation bilaterally Cardiovascular Rate/Rhythm: regular rate and regular rhythm Neurologic moves all extremities Psychiatric Orientation: alert and oriented x 3 Testing Laboratory Results 03/17/25 06:20
--- NOTE | 2025-03-17 07:44 | Orthopedic Progress Note ---
Date of Service March 17, 2025 Assessment & Plan (1) Closed fracture of lateral portion of left tibial plateau: Plan: Proceed to OR this morning for surgery. Re-admit to medicine after surgery. Admission and Anticipated Discharge Date Admission Date: March 16, 2025 Subjective Patient did well overnight. Has not had anything to eat since midnight last night. Physical Exam Physical Exam: On exam she is very pleasant female in no acute distress accompanied by her , alert and oriented x 3. Left lower extremity exam reveals the patient have a 3+ effusion. The skin is intact completely. She has a palpable pulse dorsalis pedis in her foot. She is sensory intact to light touch in the dorsal and plantar aspects of the foot. She wiggles her toes and fires tib ant and gastrocsoleus without difficulty. Knee range of motion was not tested secondary to pain. She had some mild swelling noted over the lateral tibial plateau where she was tender to palpation. No tenderness over the medial tibial plateau or over the distal femur. Mild tenderness over the synovium secondary to hemarthrosis. Results & Data Vital Signs (Past 12 Hours) Vital Signs Temp Pulse Resp BP Pulse Ox O2 Del Method 03/17/25 07:05 36.8 C 77 16 111/67 94 Room Air 03/16/25 22:50 36.6 C 80 18 111/63 03/16/25 20:00 36.6 C 80 18 111/63 95 Room Air (1) Closed fracture of lateral portion of left tibial plateau Encounter type: initial encounter Qualified Code(s): S82.122A - Displaced fracture of lateral condyle of left tibia, initial encounter for closed fracture
[2025-03-17] MEDS: TRANEXAMIC ACID / 0.7% NACL 1,000 MG/100 ML BAG IV ONE (07:48)
[2025-03-17 08:00] LABS: Anion Gap 5.0 (3-11); Blood Urea Nitrogen 12.0 mg/dl (6-23); Calcium 8.8 mg/dl (8.6-10.3); Carbon Dioxide 28.0 mmol/L (21-32); Chloride 105.0 mmol/L (98-107); Creatinine Clr Calc Pharmacy 84.5 ml/min; Glucose 99.0 mg/dl (70-99(Fasting)); Potassium 4.1 mmol/L (3.5-5.1); Sodium 138.0 mmol/L (136-145)
[2025-03-17] MEDS ORDERED: SUGAMMADEX SODIUM 200 MG/2 ML VIAL IV ONE (10:11)
--- NOTE | 2025-03-17 10:27 | Fluoroscopy Report ---
FL tibia/fibula LT 2V CLINICAL HISTORY: ORIF LT TIB FIB + SCOPE OF LT KNEE COMPARISON STUDY: Left knee radiographs and CT of the left knee March 16, 2025. Fluoroscopy time: 95.7 seconds. Number of fluoroscopic images: 3 Ka,r: 3.61 mGy. FINDINGS: Fluoroscopy was provided during open reduction and internal fixation of the lateral tibial plateau fracture with plate and screws. Fracture alignment appears anatomic. Hardware is intact. Ther e are no unexpected radiopaque foreign bodies. IMPRESSION: Fluoroscopy provided during open reduction and internal fixation of the lateral tibial p lateau fracture. ACT 112: Negative or not required by law. Electronically signed by: Darvin Fischer M.D. 03/17/2025 10:26 AM
[2025-03-17] MEDS: BUPIVACAINE/EPINEPHRINE 0.5% MPF 1:200,000 30 ML VIAL ONE (10:32)
[2025-03-17] MEDS: EpINEphrine HCL INJ 1 MG/ML 1ML SYRINGE IR ONE (10:32)
--- NOTE | 2025-03-17 10:38 | Operative Report ---
Post Operative Report Pre & Post Diagnosis Operation Date: 03/17/25 07:15 Pre-Op Diagnosis: Left Schatzker 2 Tibial Plateau Fracture Post-Op Diagnosis: Left Schatzker 2 Tibial Plateau Fracture I identified the patient and participated in the time-out.: Yes Procedure Operation Date: 03/17/25 07:15 Actual Procedures 1. Left knee arthroscopy 2. Arthroscopic assisted open reduction internal fixation left tibial plateau fracture with allograft (Left) - Fernando Agee MD Surgeon Fernando Agee MD [employer] Coach Lee Yeager PA-C. No resident or fellow was available to assist Estimated Blood Loss 25 Findings Consistent with Post-Op Diagnosis Specimens None Anesthesia Type General Complications none Disposition Disposition: Recovery Room Indications 69-year-old female, fell off a ladder from a height of around 3 feet yesterday landing on her left leg. Immediate onset of knee pain. She presented to the emergency room where x-rays and a CT scan demonstrated a Schatzker 2 left tibial plateau fracture. Joint surface was depressed approximately 9 mm. I had a long discussion with her about her diagnosis and treatment options. Surgery is recommended to reduce and fixate the fracture. After reviewing all the risks and benefits of surgery, alternatives, and expected outcomes she elected to proceed with surgery. All questions were answered. Informed consent was signed. Description of Procedure Patient was identified in the preoperative holding area where her surgical site was marked. She was brought back to the operating room where she moved onto the operating room table and general anesthesia was administered. A bump was placed underneath the operative hip. All bony prominences were padded. Perioperative antibiotics and 1 g of IV tranexamic acid were administered. She was prepped and draped in the usual sterile fashion. Prior to incision a multidisciplinary time was called. All in the room in agreement. I began by performing a left knee arthroscopy. Lateral portal was created using a #11 blade. Arthroscope was inserted in the suprapatellar pouch. Large amount of hematoma was encountered in the joint. This was suctioned out. The ar throscope was then placed in the knee and we irrigated out the knee to remove the hematoma. An anterior medial portal was then created under direct visualization. A diagnostic arthroscopy was performed revealing the below findings: 1. Undersurface patella showed grade II chondromalacia. 2. The trochlea showed grade I chondromalacia. 3. The ACL was intact. 4. Medial compartment showed the medial meniscus medial tibial plateau and medial femoral condyle to be intact. 5. Lateral compartment showed the lateral meniscus to be intact. She had a depressed tibial plateau fracture with a large fragment located anterolaterally and a small fragment located posterior laterally. Next, the arthroscope was removed from the knee, and the limb was exsanguinated with an Esmarch bandage. The knee was placed over a bump. A hockey-stick shaped incision was made following the junction between the anterior compartment musculature and the tibia. I dissected down through subcutaneous tissues to the level of fascia. The anterior compartment was dissected off of the tibia subperiosteally. Next, the arthroscope was inserted into the anterior medial portal and the anterolateral portal was enlarged in order to facilitate placement of the ACL guide. This was centered over the large articular fragment. Angle was set at 75 degrees. 2.4 mm guidewire was then drilled underneath the fragment. Fluoroscopy was brought in and we checked the position of the wire which I was happy with. I then used an 8 mm reamer to open the cortex at the entry of the wire into the metaphysis of the tibia. A tamp was then placed up underneath the fragment. With a combination of arthroscopic assistance as well as fluoroscopy I then tamped the articular fragment up back into its normal anatomic position. The void created underneath the fragment from the tamp was backfilled with cancellous bone chips. Once I had an anatomic reduction, the tourniquet was let down and I then brought up the [employer] proxima l tibial locking plate for the left knee. This was placed in the appropriate position and then secured with K wires. A large periarticular reduction clamp was then brought up on the field. Small stab incision was made at the appropriate location in the proximal medial tibia. 1 ry of the clamp was placed down to the proximal medial tibia. Second ry was placed over the lateral aspect of the plate and was used to compress the fracture via the plate. Once this was complete I then placed a single 3.5 mm cortical screw in the oblong hole of the plate to compress the plate to the bone. I then filled the locking holes in the proximal aspect of the plate with 3.5 mm locking screws. These were drilled and measured and the screws were placed so as to not past the far cortex. Once all of her proximal locking screws were then placed I then placed the 2 kickstand locking screws more distally in the plate. Finally the another 3.5 Oliveros cortical screw was placed in the most distal hole of the plate in bicortical fashion. Excellent fixation was obtained. Fluoroscopy confirmed that we had an anatomic reduction of the fracture and the hardware was in appropriate position. Arthroscope was inserted back into the joint and this confirmed that we had an anatomic reduction of the large articular fragment. The small posterior articular fragment was still depressed about 1 mm which was acceptable. At this point the arthroscope was removed from the joint. Wounds were irrigated with copious amounts normal saline. The fascia was closed over the distal aspect of the plate using 0 Vicryl sutures. Skin was closed with 3-0 Vicryl sutures in buried fashion. Stapler was used for the skin. Xeroform, gauze, Kerlix, and an Kd wrap were applied. Patient was placed in a hinged knee brace with range of motion unlocked. She was then awoke from anesthesia and transferred to recovery room in stable condition. Postoperative course: Patient will be readmitted to the hospitalist service. She will be nonweightbearing for the next 6 weeks. Full knee range of motion immediately after surgery will be encouraged. She can discharge home tomorrow if she passes physical therapy. She should be on aspirin 81 mg twice a day for DVT prophylaxis. Follow-up in orthopedics clinic in 2 weeks with x-rays. I attest to the content of the Intraoperative Record and any orders documented therein. Any exceptions are noted below.
[2025-03-17] MEDS: MEPERIDINE HCL 25 MG/ML CARP/VIAL IV PRN (11:12)
--- NOTE | 2025-03-17 11:13 | Operative Report ---
Post Operative Report Pre & Post Diagnosis Pre-Op Diagnosis: Left Schatzker 2 Tibial Plateau Fracture Post-Op Diagnosis: Left Schatzker 2 Tibial Plateau Fracture I identified the patient and participated in the time-out.: Yes Procedure Operation Date: 03/17/25 07:15 Actual Procedures 1. Left knee arthroscopy 2. Arthroscopic assisted open reduction internal fixation left tibial plateau fracture with allograft (Left) - Fernando Agee MD Surgeon Fernando Agee MD [employer] Shipper eLe Yeager PA-C. No resident or fellow was available to assist Estimated Blood Loss 25 Findings Consistent with Post-Op Diagnosis Specimens None Description of Procedure I was present for the entire case. I assisted with patient positioning, prepping, draping, retraction, wound closure, dressing and brace application. Please refer to Dr. Agee's procedure note for full details. I attest to the content of the Intraoperative Record and any orders documented therein. Any exceptions are noted below.
--- NOTE | 2025-03-17 11:25 | Anesthesiology Progress Note ---
Date of Service March 17, 2025 Anesthesia Post Procedure Vital Signs Vital Signs: Temp Pulse Resp BP Pulse Ox O2 Del Method O2 Flow Rate 03/17/25 10:47 36.8 C 84 16 133/72 100 Oxymask 8 03/17/25 07:05 36.8 C 77 16 111/67 94 Room Air 03/16/25 22:50 36.6 C 80 18 111/63 03/16/25 20:00 36.6 C 80 18 111/63 95 Room Air 03/16/25 18:00 67 14 126/66 95 03/16/25 18:00 Room Air 03/16/25 17:32 70 18 116/58 L 97 Room Air 03/16/25 17:04 76 14 129/69 94 03/16/25 16:05 76 18 137/85 99 03/16/25 14:00 69 16 123/74 98 Room Air 03/16/25 11:45 72 18 121/72 95 Nasal Cannula 2 Pain Intensity Left Leg: Pain Intensity: 3 Transfer of Care Handoff Completed per policy Notes Mental Status: alert / awake / arousable and participated in evaluation Patient Amnestic to Procedure: Yes Nausea / Vomiting: adequately controlled Pain: adequately controlled Airway Patency, RR, SpO2: stable & adequate BP & HR: stable & adequate Hydration State: stable & adequate Anesthetic Complications: no major complications apparent and Pt Satisfied with anesthetic care
[2025-03-17] MEDS ORDERED: NALOXONE HCL 0.4 MG/1 ML VIAL/CARP IV PRN (12:09)
[2025-03-17] MEDS: TRANEXAMIC ACID / 0.7% NACL 1000MG/100ML BAG IV ONE (12:19)
[2025-03-17] MEDS: CALCIUM CARBONATE 1250MG TAB PO SCH (12:21)
[2025-03-17] MEDS: SODIUM CHLORIDE 0.9% 1,000 ML IV SCH (12:33)
--- NOTE | 2025-03-17 12:33 | Electrocardiogram Report ---
Test Reason : Blood Pressure : */* mmHG Vent. Rate : 66 BPM Atrial Rate : 66 BPM P-R Int : 162 ms QRS Dur : 88 ms QT Int : 432 ms P-R-T Axes : -6 -12 -24 degrees QTcB Int : 452 ms Normal sinus rhythm Inferior infarct , age undetermined Abnormal ECG No previous ECGs available Confirmed by Leo Vasquez ([id number]) on 03/17/2025 12:32:52 PM Referred By: REFERRED SELF Confirmed By: Leo Vasquez
--- NOTE | 2025-03-17 14:01 | Billing Data ---
Date of Service March 17, 2025 Coding Level of Care Code 49995 SUB INP/OBS CARE
[2025-03-17] MEDS: MEPERIDINE HCL 25 MG/ML CARP/VIAL ONE (14:13)
[2025-03-17] MEDS: CHOLECALCIFEROL 25 MCG (1000 UNITS) TAB PO SCH (16:00)
[2025-03-17] MEDS: GADOBUTROL 30ML VIAL IV ONE (16:38)
[2025-03-17 19:06] LABS: Hematocrit (blood only) 37.1 % (37.0-47.0); Hemoglobin 12.1 g/dl (12.0-16.0)
--- NOTE | 2025-03-17 19:25 | Magnetic Resonance Report ---
MRI CERVICAL SPINE WITH and WITHOUT CONTRAST TECHNIQUE: An MRI examination of the cervical spine was performed. The examination consists of sagittal T1-weighted, inversion recovery and T2 weighted images as well as axial T1-weighted, T2-weighted and gradient echo images. Postcontrast T1-weighted images were also obtained in axial and sagittal planes. IV CONTRAST: 8 mL of Gadavist was intravenously administered. INDICATION: Neck pain COMPARISON: Cervical spine CT 1 day previous FINDINGS: As seen in the CT examination from 1 day prior, there is a heterogeneously enhancing lesion in the right lateral aspect of the thecal sac at C2-3 measuring 10 x 7 x 25 mm (AP x TV x CC). There is susceptibility artifact within this lesion that is likely due to mineralization/calcification. This lesion appears adherent to the dural surface. This lesion exerts mild mass effect upon the spinal cord and its right lateral aspect, causing surface indentation. This lesion may be also contacting the exiting nerve root. A smaller similar lesion is identified at C4-5 in a similar location measuring 4 mm in this lesion may be also contacting the exiting nerve root on the right side (series 16, image 16). No significant vertebral body height loss. No significant spondylolisthesis. Bone marrow signal is unremarkable. There are no significant degenerative changes. The spinal cord bulk is normal. No suspicious enhancement identified. Visualized soft tissues of the neck, brain and thorax are unremarkable. IMPRESSION: No acute process identified in the cervical spine. Dural based extramedullary, intradural lesion at C2-3 and a smaller similar lesion at C4-5 in the right lateral aspect that are most probably meningiomas. The larger lesion at C2-3 exerts mild mass effect upon the cervical cord resulting in its surface indentation and these lesions may be also impinging the exiting nerve roots. Please correlate with clinical symptoms Electronically signed by Otis Rasmussen 03-17-2025 7:24 PM
[2025-03-17] MEDS: CALCIUM CARBONATE 500 MG CHEWABLE TAB PO SCH (20:04)
[2025-03-17] MEDS: DICLOFENAC SODIUM 75 MG TABCR PO SCH (20:04)
--- NOTE | 2025-03-18 00:05 | XRay Report ---
Exam(s): XR LEFT KNEE, 1-2 views EXAM: XR Left Knee, 2 Views CLINICAL HISTORY: Reason for exam: post operative. TECHNIQUE: Frontal and lateral views of the left knee. COMPARISON: 03/16/2025. FINDINGS: An overlying brace limits evaluation. Bones/joints: There is a fixation plate noted the along the proximal tibia with surgical screws. There is a nondisplaced fracture of the lateral tibial plateau. No dislocation. Soft tissues: Surgical clips are seen. There is intra-articular emphysema noted.. IMPRESSION: There is a fracture of the proximal tibia with postoperative changes. There is improved alignment compared to previous exam. Electronically signed by: Aiden Sarmiento MD 03/18/25 00:04 AM
[2025-03-18 07:55] LABS: Hematocrit (blood only) 34.0 % (37.0-47.0); Hemoglobin 11.2 g/dl (12.0-16.0); Mean Corpuscular Hemoglobin 29.4 pg (25.0-34.0); Mean Corpuscular Volume 89.2 fL (80.0-100.0); Platelet Count 101 K/uL (130-400); RDW Standard Deviation 45.6 fL (36.4-46.3); Red Blood Count 3.81 M/uL (4.20-5.40); White Blood Count 5.21 K/ul (4.8-10.8)
[2025-03-18 08:10] LABS: Anion Gap 4.0 (3-11); Blood Urea Nitrogen 14.0 mg/dl (6-23); Calcium 8.2 mg/dl (8.6-10.3); Carbon Dioxide 28.0 mmol/L (21-32); Chloride 106.0 mmol/L (98-107); Creatinine Clr Calc Pharmacy 89.1 ml/min; Glucose 94.0 mg/dl (70-99(Fasting)); Potassium 3.8 mmol/L (3.5-5.1); Sodium 138.0 mmol/L (136-145)
[2025-03-18] MEDS: ASPIRIN 81 MG ECTAB PO SCH (09:26)
--- NOTE | 2025-03-18 10:30 | Hospitalist Progress Note ---
Date of Service March 18, 2025 Assessment & Plan (1) Closed fracture of lateral portion of left tibial plateau: (2) Osteoporosis: (3) Thrombocytopenia: (4) Head trauma: (5) Cervical spinal mass: Plan Marcy is a 69yo F with no significant medical history, here for fall 03/16/25 AM when trimming her apple tree on a 3-step ladder, resulting in a L tibial plateau fracture confirmed by L knee xr and CT scan. Underwent ORIF and L arthroscopy with Dr. Agee 02/16/25 AM. Requires continued admission for VS and symptom monitoring s/p ortho procedure, thereafter to be non weight-bearing on LLE for 6-8wks, PT/OT to start while inpatient. Based on Ortho's assessment, patient is medically stable for discharge. #Lateral Tibial Plateau fracture, Left closed, however with 7mm depression, prompting ORIF 03/17/[address] Agee Procedure uncomplicated, LLE with brace and ice packs, supportive pillows PT/OT ordered, appreciate recs, 6-8wks of non-weightbearing LLE Pain control: - Will discontinue Morphine 2mg vs 4mg for moderate vs severe pain, respectively - Oxycodone 5-10mg prn q6 for moderate to severe pain - Continue acetaminophen 650 mg PRN for mild pain - Zofran prn for associated nausea/vomiting Vital signs stable, though BMP indicating mild dehydration based on BUN:Cr - will discontinue IV fluids due to good PO intake - BMP AM #Osteoporosis Noted on DEXA from 2022 with lowest z-score of -2.9, within osteoporotic range Treat with bisphosphonates once permitted to start weightbearing, 6-8wks from now (mid-April to early May) #Head trauma - CT head w/o contrast unremarkable for acute intracranial pathology #Cervical spinal mass, incidental CT head w/o con and CT neck showing C2-3 intraspinal mass R of midline, possible meningioma -MRI c-spine: Dural based extramedullary, intradural lesion at C2-3 and a smaller similar lesion at C4-5 in the right lateral aspect that are most probably meningiomas. The larger lesion at C2-3 exerts mild mass effect upon the cervical cord resulting in its surface indentation and these lesions may be also impinging the exiting nerve roots. #Thrombocytopenia isolated aside from mildly nphilic predominance - mildly decreased at 101, down from prior 108 on 03/17/25. - asymptomatic, Hgb 11.2, no signs of active bleeding. Most likely due to surgery and blood being diluted from IV fluids. - CBC AM Code: full FEN/GI: regular as tolerated VTE ppx: aspirin 81mg BID (per ortho) starting 7/7 AM Dispo: med/surg Admission and Anticipated Discharge Date Admission Date: March 16, 2025 Supervising Physician Co-Signing Physician Notes Attending attestation Pt seen and examined in concert with Dr. Macias. In agreement with the documented findings as noted in the resident documentation with any exceptions or additions as noted here. Pain well controlled with positioning and present PRN medications. Engaged w/ rehab process. VS as noted. On examination, S1/S2 nl RRR no MCG. CTAB. Abd NT/ND BS+ve. LLE in immobilizer L tibial plateau fx s/p ORIF - PT, ortho consult - doing well, pending placement for further rehab services. Continue pain control. Osteoporosis - would recommend bisphosphonate use when weightbearing Else see resident documentation as noted. Subjective Patient is a 69 year old female who presented into the ED due to a fall. Patient fell off a stepladder and onto her left knee. Patient was admitted to the ED and found to have a L. tibial plateau fracture. Patient had orthopedic surgery yesterday and reports she is doing well. Stated that she is eating and drinking okay. Will be seeing ortho. Review of Systems Constitutional: as per Subjective / HPI Physical Exam Constitutional: WD/WN, vitals as above Respiratory: normal respiratory effort, lungs clear to auscultation Cardiovascular: RRR, no murmur, no edema Musculoskeletal: Knee: + knee abnormal to inspection (had L. knee brace) Psychiatric: Eye Contact: good eye contact Speech: normal rate/rhythm/volume of speech Thought Process: clear/coherent thought process Results & Data Results & Data Vital Signs (Past 12 Hours) Vital Signs Temp Pulse Resp BP Pulse Ox O2 Del Method 03/18/25 07:05 36.8 C 80 17 111/62 95 Room Air 03/18/25 04:45 36.7 C 73 16 99/59 L 94 Room Air 03/17/25 23:02 36.8 C 76 16 108/60 93 Room Air (1) Closed fracture of lateral portion of left tibial plateau Encounter type: initial encounter Qualified Code(s): S82.122A - Displaced fracture of lateral condyle of left tibia, initial encounter for closed fracture (2) Osteoporosis Encounter type: initial encounter Osteoporosis type: unspecified Presence of current pathological fracture: with current pathological fracture Qualified Code(s): M80.00XA - Age-related osteoporosis with current pathological fracture, unspecified site, initial encounter for fracture (4) Head trauma Encounter type: initial encounter Qualified Code(s): S09.90XA - Unspecified injury of head, initial encounter
--- NOTE | 2025-03-18 13:57 | Orthopedic Progress Note ---
Date of Service March 18, 2025 Assessment & Plan (1) Closed fracture of lateral portion of left tibial plateau: Plan: Postop day #1 status post ORIF left lateral tibial plateau fracture with Dr. Agee. Brace was adjusted to satisfactory fit today. Kd wrap is clean, dry, intact. Was left in place. Patient with pain with active straight leg raise and range of motion is limited. Dr. Agee would like the patient to start physical therapy in our office. An appointment is scheduled for 2 days from now. While patient is admitted very important that she work on range of motion of the knee. She is nonweightbearing with the left lower extremity for the next 6 weeks. It is okay to have her knee bent when she is ambulating using the walker. Brace does not need to be locked in extension. Focus on working on knee ROM. Aspirin 81 mg twice daily for DVT prophylaxis. Pain control with Tylenol, diclofenac, oxycodone. Prescriptions for diclofenac and oxycodone were sent to the pharmacy on 03/18/2025. PT, OT, and case management notes reviewed. OT recommended home health. Okay to be discharged from orthopedic standpoint once patient is medically cleared and everything is set in place. Admission and Anticipated Discharge Date Admission Date: March 16, 2025 Subjective Patient is seen in bed this morning. Her is at the bedside. She reports no pain currently, but it comes and goes. She has been up with physical therapy and Occupational Therapy. She has some questions about the brace. She denies any numbness or tingling in her toes and is able to wiggle her toes. Physical Exam Constitutional: Resting comfortably in bed. No distress. Pleasant. Cardiovascular: Left DP pulse 2+ Musculoskeletal: Left lower extremity: Kd wrap covers the lower leg and upper leg. It is clean, dry, intact. Patient just able to perform a straight leg raise. Active range of motion 0 to 20 degrees. Strength 5/5 with ankle plantarflexion, dorsiflexion, eversion. Neurologic: No sensory deficits left lower extremity to light touch Results & Data Vital Signs (Past 12 Hours) Vital Signs Temp Pulse Resp BP Pulse Ox O2 Del Method 03/18/25 12:16 98.2 F 82 16 118/71 95 Room Air 03/18/25 07:05 98.2 F 80 17 111/62 95 Room Air 03/18/25 04:45 98.1 F 73 16 99/59 L 94 Room Air Laboratory Results 03/18/25 03/17/25 07:38 18:36 WBC 5.21 RBC 3.81 L Hgb 11.2 L 12.1 Hct 34.0 L 37.1 MCV 89.2 MCH 29.4 MCHC 32.9 RDW Std Deviation 45.6 RDW Coeff of Beka 14.0 Plt Count 101 L MPV 11.5 Sodium 138 Potassium 3.8 Chloride 106 Carbon Dioxide 28 Anion Gap 4 BUN 14 Creatinine 0.55 L Est Cr Clr Drug Dosing 89.1 eGFR 98.55 BUN/Creatinine Ratio 25.5 H Glucose 94 Calcium 8.2 L Diagnostic Findings Knee X-Ray 03/17/25 16:17 Exam(s): XR LEFT KNEE, 1-2 views EXAM: XR Left Knee, 2 Views CLINICAL HISTORY: Reason for exam: post operative. TECHNIQUE: Frontal and lateral views of the left knee. COMPARISON: 03/16/2025. FINDINGS: An overlying brace limits evaluation. Bones/joints: There is a fixation plate noted the along the proximal tibia with surgical screws. There is a nondisplaced fracture of the lateral tibial plateau. No dislocation. Soft tissues: Surgical clips are seen. There is intra-articular emphysema noted.. IMPRESSION: There is a fracture of the proximal tibia with postoperative changes. There is improved alignment compared to previous exam. Electronically signed by: Aiden Sarmiento MD 03/18/25 00:04 AM (1) Closed fracture of lateral portion of left tibial plateau Encounter type: initial encounter Qualified Code(s): S82.122A - Displaced fracture of lateral condyle of left tibia, initial encounter for closed fracture
[2025-03-18 19:07] VITALS: RESP 16
[2025-03-19 06:59] VITALS: BP 108/64; PULSE 66; TEMP 98.2; O2SAT 92
--- NOTE | 2025-03-19 11:12 | Orthopedic Progress Note ---
Date of Service March 19, 2025 Assessment & Plan (1) Closed fracture of lateral portion of left tibial plateau: Plan: Postop day #2 status post ORIF left lateral tibial plateau fracture with Dr. Agee. Patient seems to be doing much better today. Her range of motion has improved. We discussed the importance of working on active range of motion when at rest. KD wrap taken down, new dressing of xeroform, 4x4 gauze, and kd wrap applied. This should be left in place for the next 3 days, then can be removed to shower. Towel pat dry, then reapply gauze or abd pad, kd wrap. I reviewed with the patient that she has a physical therapy appointment schedule d for tomorrow in our office if she is discharged today. Otherwise physical therapy should continue work on active range of motion with the knee when at rest. She can also do PT at home with [facility]. Orthopedics is comfortable with her being discharged today. Nonweightbearing with the left lower extremity for the next 6 weeks. It is okay to have her knee flexed when she is ambulating using the walker. Brace does not need to be locked in extension. Focus on working on knee ROM. Aspirin 81 mg twice daily for DVT prophylaxis. TATA stockings x 2 weeks. Pain control with Tylenol, diclofenac, oxycodone. Prescriptions for diclofenac and oxycodone were sent to the pharmacy on 03/18/2025. Home health and home PT to be set up. Contact our office with any questions or concerns. Admission and Anticipated Discharge Date Admission Date: March 16, 2025 Subjective Patient seen in bed this morning. She states that she is doing much better today than she was yesterday. She has been able to ambulate to the restroom and back on her own multiple times and is able to stay nonweightbearing with the left lower extremity. She is hopeful to be discharged home today. She denies any chest pain, shortness of breath, nausea, vomiting, numbness or tingling in her left leg or toes. Physical Exam Constitutional: Resting comfortably sitting upright in bed, in no acute distress. Cardiovascular: Left DP pulse 2+ Musculoskeletal: Left lower extremity: Dressing/Kd wrap is clean, dry, intact. The knee brace appears to be fitting appropriately. Knee range of motion 0 to 60 degrees, improved from yesterday. Strength 5/5 with ankle plantarflexion, dorsiflexion, eversion Neurologic: No sensory deficits right lower extremity toes to light touch. Results & Data Vital Signs (Past 12 Hours) Vital Signs Temp Pulse Resp BP Pulse Ox O2 Del Method 03/19/25 06:59 98.2 F 66 16 108/64 92 Room Air (1) Closed fracture of lateral portion of left tibial plateau Encounter type: initial encounter Qualified Code(s): S82.122A - Displaced fracture of lateral condyle of left tibia, initial encounter for closed fracture
--- NOTE | 2025-03-19 14:08 | Discharge Summary ---
Date of Service March 19, 2025 Admission HPI Per Admitting Provider Marcy is a 69yo F with no significant medical history, here for fall this morning when trimming her apple tree resulting in L knee trauma found to be a L tibial plateau fracture seen on knee xr and CT scan. Being admitted for ORIF and L arthroscopy with Dr. Agee tomorrow morning 02/16/25. HPI: Denies any recent illness, weakness, falls, dizziness, alcohol or other substance use, or decreased appetite. Endorses she was doing yardwork all morning in her backyard. Notes she was on a 3-step ladder reaching to cut a long branch from her apple tree, when she lost balance and ended up falling, getting her L leg stuck in the ladder, and hitting her L knee on the ground. Notes the ground was grassy and not very hard, but immediately had severe pain in L knee. She denies recalling exactly the direction she fell, but does recall hitting the back of her head on the ground, denies any headache, dizziness, blurry vision, or loss of consciousness. States her was in the house when she fell, so despite her yelling, he did not come out right away. She was eventually able to get the attention of a neighbor, who then got the attention of pt's . They called 911 to be taken to the hospital. She was given morphine in EMS, unsure of dosage. ER course: given Zofran 4mg for nausea Living situation: lives with , son, and 2 grandkids. Doesn't use a walker or cane, no supplemental O2. No home health services. Admission Exam Per Admitting Provider General: Well-developed, well-nourished, elderly white female, in no acute distress. Laying on the bed. Obvious discomfort. Alert and oriented. Skin: Warm dry with good turgor. No rashes. No ecchymosis or erythema. She has multiple abrasions present on her upper extremities. She also has a large effusion in the left knee. HEENT: Normocephalic, atraumatic. Eyes PERRLA, EOMI. Nares patent bilaterally without nasal drainage. Oropharynx with moist oral mucosa. Fair dentition. Heart: Heart RRR. No MGR. Peripheral pulses are 2+. Lungs: Lungs are clear to auscultation. No crackles rhonchi or wheezing. Good air movement. The patient is able to take a deep breath. Abdomen: Abdomen was inspected, auscultated, and palpated. Bowel sounds present x 4. Soft, nontender to palpation. No hepato-splenomegaly. No masses noted. No rebound. No pain over McBurney's point. No CVA tenderness. Musculoskeletal: Gross motor function of the upper extremities is intact and unremarkable. She has full motion of the shoulders, elbows, and wrists without discomfort. She has full range of motion of the right hip, knee, and ankle. Left hip motion is limited secondary to her left knee pain. She has flexion of the left knee to approximately 45 degrees. She lacks approximately 10 degrees of terminal extension also secondary to pain. There is discomfort with palpation over the lateral tibia and lateral femoral condyle. No discomfort with palpation over her gastroc, tibialis anterior, ankle, or foot. Ankle function is intact and unremarkable. Stressing of the MCL and LCL causes lateral pain at her knee. There is no palpable defect in the patellar tendon or quadriceps tendon secondary to pain. She is able to perform a bent knee leg raise. Neurologic: Gross sensation is intact across the right and left legs by soft touch. Principal Diagnosis Closed fracture of lateral portion of left tibial plateau Discharge Exam Constitutional WD/WN, vitals as above Respiratory normal respiratory effort, lungs clear to auscultation Cardiovascular RRR, no murmur, no edema Vessels: dorsalis pedis pulses present (L. dorsalis pedis pulse 2+) Musculoskeletal Knee: + knee abnormal to inspection (had L. knee brace) Psychiatric Eye Contact: good eye contact Speech: normal rate/rhythm/volume of speech Thought Process: clear/coherent thought process Discharge Data Allergies Allergy/AdvReac Type Severity Reaction Status Date / Time No Known Allergies Allergy Verified 10/29/18 23:04 Consultations 03/16/25 13:29 ED Decision to Admit Stat Procedures Performed Operation Date: 03/17/25 07:15 Actual Procedures p Arthroscopic assisted open reduction internal fixation left tibial plateau fracture with allograft application(Left) - Fernando Agee MD Ordered Studies 03/16/25 11:48 CT knee LT wo con Urgent 03/16/25 14:22 CT head/brain wo con Stat 03/16/25 14:23 CT neck [CT cervical spine wo con] Stat 03/17/25 FL tibia/fibula LT 2V Routine 03/17/25 17:26 MR cervical spine wo/w con Routine Hospital Course (1) Closed fracture of lateral portion of left tibial plateau: (2) Osteoporosis: (3) Thrombocytopenia: (4) Head trauma: (5) Cervical spinal mass: Jayda Vidal is a 69yo F with no significant medical history, here for fall 03/16/25 AM when trimming her apple tree on a 3-step ladder, resulting in a L tibial plateau fracture confirmed by L knee xr and CT scan. Underwent ORIF and L arthroscopy with Dr. Agee 02/16/25 AM. To be non weight-bearing on LLE for 6-8wks. Patient will have home PT. Based on Ortho's assessment, patient is medically stable for discharge. #Lateral Tibial Plateau fracture, Left closed, however with 7mm depression, prompting ORIF 03/17/[address] Genia godinez - Procedure uncomplicated, LLE with brace and ice packs, supportive pillows - 6-8wks of non-weightbearing LLE Pain control: - Oxycodone 5-10mg prn q6 for moderate to severe pain - Use OTC tylenol for mild pain #Osteoporosis Noted on DEXA from 2022 with lowest z-score of -2.9, within osteoporotic range Treat with bisphosphonates once permitted to start weightbearing, 6-8wks from now (mid-April to early May) #Head trauma - CT head w/o contrast unremarkable for acute intracranial pathology #Cervical spinal mass, incidental CT head w/o con and CT neck showing C2-3 intraspinal mass R of midline, possible meningioma -MRI c-spine: Dural based extramedullary, intradural lesion at C2-3 and a smaller similar lesion at C4-5 in the right lateral aspect that are most probably meningiomas. The larger lesion at C2-3 exerts mild mass effect upon the cervical cord resulting in its surface indentation and these lesions may be also impinging the exiting nerve roots. -Encourage to speak with Family Practictioner to go over MRI findings and repeat brain MRI in 3-6 months. #Thrombocytopenia isolated aside from mildly nphilic predominance - mildly decreased at 101, down from prior 108 on 03/17/25. - asymptomatic, Hgb 11.2 on 03/18/25, no signs of active bleeding. Most likely due to surgery and blood being diluted from IV fluids. Total Time Total Time Spent Total Time Spent (In Minutes): Per attending Discharge Plan Discharge Items Patient Disposition: Home - Self-Care Reason For Visit: Left lateral tibial plateau fracture Discharge Diagnosis: Left Lateral Tibial Plateau Fracture Condition on Discharge: Fair Activity: Per Instructions section Lifting Comment: Only lift objects when sitting down. Weightbearing: Left non-weightbearing Weightbearing Comment: with crutches/walker/wheelchair at all times. Non-emergency contact: Primary Care Provider and Surgeon Call non-emergency contact if: you have any medication questions, your symptoms worsen, your pain is not controlled, your temperature is above 101, your wound has increased redness and your wound has increased drainage Follow-up/Referrals: [facility] [Outside] - 03/20/25 10:30 am (Physical therapy appointment) Kennedy Robins PA-C [Physician Filler In] - 04/01/25 3:00 pm Joshua Garcia [Primary Care Provider] - 03/22/25 10:00 am Diet: Regular Addtl Attending Provider Instructions: You were admitted into the hospital because of breaking your tibia when you fell off the stepladder. We provided imaging of the leg showing that you had fractured a part of your tibia called the "tibia plateau". If you needed it, we administered pain medication to help with your pain such as Tylenol, Oxycodone, and Morphine. An orthopedic surgeon (the bone doctor) was asked to be a part of the care team as well. You were then in surgery to help fix the fracture in your tibia. Please follow the instructions the Orthopedist has given and follow-up with them. For the new MRI findings in your neck, speak with your family physician and repeat an MRI in the next 3-6 months. Addtl Linen Tech Provider Instructions: Orthopedic discharge instructions Pain Expect to be in a fair amount of pain after surgery. Remember, our goal is not to eliminate your pain, but to make it tolerable. It is a good idea to stay ahead of your pain by taking the medications you were prescribed once you get home. Typically, the pain starts improving 3-7 days after surgery. You should start weaning off the narcotic pain medication (oxycodone, hydrocodone, hydromorphone, morphine) as soon as your pain improves. Please call our office if your pain is not adequately controlled. - Tylenol 1000 mg every 8 hours Diclofenac 75 mg twice daily Oxycodone as prescribed for breakthrough pain Blood clot prevention Aspirin 81 mg twice daily for at least the next 4 weeks, possibly 6 weeks. Ice Ice your operative site at least 5 times a day for 15-30 minutes at a time. Make sure you have a thin cloth between the ice or cooling unit and your skin to prevent catalan bite. This is especially important if you received a nerve block. Continue icing your operative site for the first 5-7 days after surgery, then as needed. Diet/Nausea/Vomiting Start by drinking clear liquids and eating crackers. If you can tolerate this, then you may resume your normal diet. If you feel nauseated or vomit, take Zofran/ondansetron (if prescribed). Please call our office if you have intractable nausea or vomiting, or, if after hours, you may go to the Emergency Room for help. Constipation Constipation is a common side effect of narcotic pain medication. If you have not had a bowel movement within 2 days after surgery, we recommend purchasing an over the counter laxative such as Milk of Magnesia, Dulcolax, or Miralax from a local pharmacy, and taking it as instructed. Call our clinic if any questions. Slings and Braces If you were placed in a sling or brace, it must be worn at all times, including sleep. You may remove your sling or brace for physical therapy, home exercises, and showering. The length of time you will be in your brace and range of motion restrictions depends on what surgery you had; these details will be reviewed at your first post-operative appointment. Weight bearing and Range of Motion. Do not bear any weight through your operative extremity for the next 6 weeks. Use walker at all times. Your brace can be unlocked and you can work on range of motion immediately after surgery when at rest. It is ok to bend your knee when using walker to remain nonweightbearing. Knee range of motion is encouraged to prevent stiffness. Physical therapy Physical therapy scheduled for 03/20/25 as above in our office. Wound care and showering Leave dressing in place the next 3 days After that you can remove the dressing and get the incision wet in the shower. Towel pat dry after, and then reapply gauze or abd pad, and wrap with ANIKA wrap. TATA stockings If you were given white stockings, these are to be worn at all times except to shower (on both legs) for the first 2 weeks after surgery. Driving You may not drive while taking narcotic pain medication or while in a cast, splint, sling or brace. Return to Work Your return to work depends on what surgery was done and what type of work you do. Please bring any paperwork your employer needs completed to your first post-operative visit. Also, bring a description of your job duties, as this helps us to understand what risks you may face at work. Travel Avoid long distance travel (greater than 1 hour) in airplanes and cars for the first 6 weeks after surgery. If you must travel, you need to have a Doppler ultrasound done before you travel to rule out a blood clot in your legs. Follow-up You should follow-up with our office in 2 weeks. Appointment listed in discharge paperwork. When to call the office It is normal to have swelling and bruising in the limb that was operated on. This will improve with time. It is also normal to have fevers for the first 2 days after surgery. Reasons you should call your doctor include: Uncontrolled pain; Nausea, vomiting, or constipation that does not improve with medication; Fevers over 101.5, chills, sweats; Drainage or bleeding from the wound; Foul odor; Spreading areas of redness; Any other concerns. Contact Information Please call Dr. Agee's office at [phone] with any concerns. Pending Studies at Discharge: No Stand-Alone Forms: [facility], Smoking Cessation Medications and DC Order Prescriptions: New diclofenac sodium 75 mg tablet,delayed release (DR/EC) 75 mg PO BID 14 Days Qty: 28 1RF oxycodone 5 mg tablet 5 - 10 mg PO Q4H PRN (Reason: pain) Qty: 18 0RF Rx Instructions: Max 6 tabs/day Continued multivitamin Tablet 1 tab PO DAILY calcium carbonate [Calcium 600] 600 mg calcium (1,500 mg) Tablet 600 mg PO DAILY Discharge Orders: Discharge Order (Routine); Ordered 03/19/25 Ordered By: Shahid Church/Other Patient Handouts: Tibia Fibula Fx ORIF Admission Data Admit Date/Time: 03/16/25 17:21 Attending Provider: Keon Kenyon Admit Provider: Fernando Agee Primary Care Provider: Joshua Garcia Other Providers: Shahid Schuler V.; [facility],Home Health Other Interventions: Discharge Summary Assessment (RN) Last Done: 03/19/25 14:24 Supervising Physician Co-Signing Physician Notes Attending attestation Pt seen and examined in concert with Dr. Macias. In agreement with the documented findings as noted in the resident documentation with any exceptions or additions as noted here. Pain well controlled with positioning and present PRN medications. Engaged w/ rehab process. VS as noted. On examination, S1/S2 nl RRR no MCG. CTAB. Abd NT/ND BS+ve. LLE in immobilizer L tibial plateau fx s/p ORIF - PT, ortho consult - doing well, pending placement for further rehab services. Continue pain control. Osteoporosis - would recommend bisphosphonate use when weightbearing Else see resident documentation as noted. Total attending physician time spent with this patient's care on the day of discharge: 32 minutes.
== END 2025-03-19 15:09 | disposition home or self-care (01) | DRG 494 ==
LOC: ED 10:10 → 3N 17:21 → SUATTDRO 17:21 → 3N 18:00
DX: D69.6 Thrombocytopenia, unspecified; M81.0 Age-related osteoporosis without current pathological fracture; Y92.017 Garden or yard in single-family (private) house as the place of occurrence of the external cause; W11.XXXA Fall on and from ladder, initial encounter; D32.1 Benign neoplasm of spinal meninges; Y93.H2 Activity, gardening and landscaping; S82.122A Displaced fracture of lateral condyle of left tibia, initial encounter for closed fracture; S09.90XA Unspecified injury of head, initial encounter